=== PATIENT | male | born 1980 | race Caucasian/White ===

== ENCOUNTER 2017-10-19 18:43 | Inpatient (IN) | payer BC, OTHER ==
[~2017-10-19] VITALS: Ht 170.2 cm; Wt 71.2 kg
[2017-10-19] MEDS ORDERED: MIRALAX 17 GM POWD.PACK PO PRN (22:00)
[2017-10-19] MEDS ORDERED: ONDANSETRON 4 MG/2 ML VIAL IM PRN (22:00)
[2017-10-19] MEDS ORDERED: diphenhydrAMINE 50 MG CAPSULE PO PRN (22:00)
[2017-10-19] MEDS ORDERED: LORAZEPAM 2 MG/1 ML VIAL IM PRN (22:00)
[2017-10-19] MEDS ORDERED: ACETAMINOPHEN 325 MG TABLET PO PRN (22:00)
[2017-10-19] MEDS ORDERED: DICYCLOMINE HCL 20 MG TABLET PO PRN (22:00)
[2017-10-19] MEDS ORDERED: METHOCARBAMOL 750 MG TABLET PO PRN (22:00)
[2017-10-19] MEDS ORDERED: BUPRENORPHINE HCL 2 MG TAB.SUBL SL PRN (22:00)
[2017-10-19] MEDS ORDERED: ONDANSETRON ODT 4 MG TAB.RAPDIS SL PRN (22:00)
[2017-10-19] MEDS ORDERED: LOPERAMIDE HCL 2 MG CAPSULE PO PRN ×2 (22:00)
[2017-10-19] MEDS ORDERED: MAG HYDROX/AL HYDROX/SIMETH 30 ML LIQUID UDC PO PRN (22:00)
[2017-10-19] MEDS ORDERED: LORAZEPAM 1 MG TABLET PO PRN ×2 (22:00)
[2017-10-19] MEDS ORDERED: IBUPROFEN 600 MG TABLET PO PRN (22:00)
[2017-10-19] MEDS ORDERED: MAGNESIUM HYDROXIDE 30 ML LIQUID UDC PO PRN (22:00)
[2017-10-19] MEDS ORDERED: HYDROXYZINE PAMOATE 25 MG CAPSULE PO PRN (22:00)
[2017-10-19 22:13] LABS: *AMPHETAMINE, URINE NEGATIVE (NEGATIVE); *BARBITURATE, URINE NEGATIVE (NEGATIVE); *CANNABINOID, URINE POSITIVE (NEGATIVE); *COCCAINE, URINE POSITIVE (NEGATIVE); *OPIATE, URINE NEGATIVE (NEGATIVE); *PHENCYCLIDINE SCREEN,URINE NEGATIVE (NEGATIVE)
[2017-10-19] MEDS: CLONIDINE HCL 0.1 MG TABLET PO PRN (22:33)
[2017-10-19 23:14] LABS: BASOPHILS # (AUTO) 0.1 K/uL (0.0-8.0); EOSINOPHILS # (AUTO) 0.4 K/uL (0.0-0.7); EOSINOPHILS % (AUTO) 4.4 % (0.0-7.0); HEMATOCRIT 45.2 % (36.7-47.1); HEMOGLOBIN 15.4 g/dL (12.5-16.3); LYMPHOCYTES # (AUTO) 2.2 K/uL (20.0-40.0); LYMPHOCYTES % (AUTO) 21.6 % (20.5-51.5); MEAN CORPUSCULAR HEMOGLOBIN 32.7 uug (23.8-33.4); MEAN CORPUSCULAR HGB CONC 34 g/dL (32.5-36.3); MEAN CORPUSCULAR VOLUME 96.1 fL (73.0-96.2); MONOCYTES % (AUTO) 9.6 % (0.0-11.0); NEUTROPHILS # (AUTO) 6.5 K/uL (1.8-8.9); NEUTROPHILS % (AUTO) 63.4 % (38.5-71.5); PLATELET COUNT (AUTO) 309 K/uL (152-348); RED BLOOD CELL COUNT(AUTO) 4.71 MIL/uL (4.06-5.63); WHITE BLOOD COUNT (AUTO) 10.3 K/uL (3.6-10.2)
[2017-10-19 23:27] LABS: ETHANOL < 3 MG/DL (0-0)
[2017-10-19 23:32] LABS: ALANINE AMINOTRANSFERASE 52 U/L (16-63); ALKALINE PHOSPHATASE 53 U/L (50-136); AMYLASE 50 U/L (25-115); ASPARTATE AMINOTRANSFERASE 48 U/L (15-37); BILIRUBIN,TOTAL 0.4 mg/dL (0.2-1.0); CARBON DIOXIDE 33 mmol/L (21-32); CHLORIDE 103 mmol/L (98-107); CREATININE 1.2 mg/dL (0.6-1.3); GLUCOSE 103 mg/dL (74-106); LIPASE 167 U/L (73-393); POTASSIUM 3.3 mmol/L (3.5-5.1); TOTAL PROTEIN, SERUM 6.6 g/dL (6.4-8.2); UREA NITROGEN, BLOOD 19 mg/dL (7-18)
[2017-10-19 23:42] LABS: THYROID STIMULATING HORMONE 0.929 mIU/mL (0.358-3.740)
[2017-10-19] MEDS ORDERED: CLONIDINE HCL 0.1 MG TABLET PO ONE (23:45)
[2017-10-19] MEDS ORDERED: LORAZEPAM 1 MG TABLET PO ONE (23:45)
[2017-10-20] VITALS: BP 133/84
[2017-10-20] MEDS ORDERED: GABAPENTIN 400 MG CAPSULE PO ONE
[2017-10-20] MEDS: PHENOBARBITAL 60 MG TABLET PO SCH ×4 (09:00→20:44)
[2017-10-20] MEDS ORDERED: GABAPENTIN 400 MG CAPSULE PO PRN (09:00)
[2017-10-20] MEDS: MULTIVITAMINS,THERAPEUTIC TABLET PO SCH (09:00)
[2017-10-20] MEDS ORDERED: TUBERCULIN,PURIF.PROT.DERIV. 5 TU/0.1 ML TEST ID ONE ×2 (09:00)
[2017-10-20 12:39] VITALS: BP 135/70
[2017-10-20] MEDS ORDERED: SUVO20TA PO (12:55)
[2017-10-20] MEDS ORDERED: CLON0.2T PO (12:55)
[2017-10-20 15:49] LABS: CREATININE 1.2 mg/dL (0.6-1.3); POTASSIUM 3.1 mmol/L (3.5-5.1)
[2017-10-20 17:12] VITALS: BP 107/72
[2017-10-20 20:00] VITALS: BP 130/78
[2017-10-20] MEDS: ARIPIPRAZOLE 5 MG TABLET PO SCH (20:44)
[2017-10-20] MEDS ORDERED: POTASSIUM CHLORIDE 20 MEQ TAB.PRT.SR PO ONE ×2 (21:00)
[2017-10-20] MEDS: CLONIDINE HCL 0.1 MG TABLET PO PRN (21:53)
[2017-10-21] VITALS: BP 116/78
[2017-10-21 04:00] VITALS: BP 109/71
[2017-10-21 05:06] LABS: HEPATITIS B SURFACE AG Negative (Negative)
[2017-10-21 08:00] VITALS: BP 119/76
[2017-10-21] MEDS: PHENOBARBITAL 60 MG TABLET PO SCH ×3 (08:38→22:10)
[2017-10-21] MEDS: MULTIVITAMINS,THERAPEUTIC TABLET PO SCH (08:39)
[2017-10-21 12:00] VITALS: BP 120/53
[2017-10-21] MEDS ORDERED: CLONIDINE HCL 0.2 MG TABLET PO PRN (15:00)
[2017-10-21 16:00] VITALS: BP 120/68
[2017-10-21 20:00] VITALS: BP 128/77
[2017-10-21] MEDS: ARIPIPRAZOLE 5 MG TABLET PO SCH (22:10)
[2017-10-22] VITALS: BP 132/81
[2017-10-22 08:04] VITALS: BP 139/82
[2017-10-22] MEDS: MULTIVITAMINS,THERAPEUTIC TABLET PO SCH (09:41)
[2017-10-22] MEDS: PHENOBARBITAL 60 MG TABLET PO SCH ×2 (09:41→12:11)
[2017-10-22 12:34] VITALS: BP 141/91
[2017-10-23] MEDS ORDERED: PHENOBARBITAL 60 MG TABLET PO SCH (09:00)
[2017-10-24] MEDS ORDERED: PHENOBARBITAL 60 MG TABLET PO SCH (09:00)
[2017-10-25] MEDS ORDERED: PHENOBARBITAL 60 MG TABLET PO SCH (09:00)
== END 2017-10-22 12:05 | disposition left against medical advice (07) | DRG 894 ==
LOC: SRC 20:05
PROVIDERS: ADMIT Family Medicine Addiction Medicine; ATTEND Internal Medicine
PROC: HZ2ZZZZ Detoxification Services for Substance Abuse Treatment (ICD-10-PCS; principal; 2017-10-19)
DX: F13.230 Sedative, hypnotic or anxiolytic dependence with withdrawal, uncomplicated (principal); F14.229 Cocaine dependence with intoxication, unspecified; E87.6 Hypokalemia; F41.9 Anxiety disorder, unspecified; F31.9 Bipolar disorder, unspecified; G47.00 Insomnia, unspecified; F17.210 Nicotine dependence, cigarettes, uncomplicated; D72.829 Elevated white blood cell count, unspecified; R74.0 Nonspecific elevation of levels of transaminase and lactic acid dehydrogenase [LDH]; F11.23 Opioid dependence with withdrawal
CPT/HCPCS: 36415; 80307; 80349; 80353; 83690; 83735; 84443; 85025; 86592; 86705; 86803; 87340; 87806; A4663; G0480; J8499